=== PATIENT | female | born 1985 | race Caucasian/White ===

== ENCOUNTER 2021-02-13 07:06 | Emergency (ER) | payer OTHER ==
[~2021-02-13 07:06] MED LIST: COLACE100 MG PO; IBUPROFEN600 MG PO; PERCOCET 5-3251 EACH PO; PRENATAL TABLE1 EAC1 PO
[2021-02-13 08:33] LABS: CORONAVIRUS 2019 SARS-COV-2 NEGATIVE (NEGATIVE); INFLUENZA A NAA NEGATIVE (NEGATIVE)
[2021-02-13] MEDS ORDERED: TESSALON PERLE100 MG PO (08:50)
[2021-02-13] MEDS ORDERED: MUCINEX D TABL1 EACH PO (08:50)
[2021-02-13] MEDS ORDERED: ZPAK PO (08:50)
[2021-02-13] MEDS ORDERED: VENTOLIN HFA18 GM INH (08:50)
== END 2021-02-13 09:07 | disposition home or self-care (01) ==
LOC: FER 07:06
PROVIDERS: Emergency Medicine
DX: J40 Bronchitis, not specified as acute or chronic (principal); Z87.891 Personal history of nicotine dependence; Z20.822 Contact with and (suspected) exposure to COVID-19
CPT/HCPCS: 71046; U0002